=== PATIENT | male | born 1955 | race Caucasian/White ===

== ENCOUNTER 2016-08-14 10:15 | Emergency (ER) | payer SELFPAY ==
[~2016-08-14] VITALS: Ht 188 cm; Wt 90.7 kg
[2016-08-14 10:30] VITALS: BP 174/101
[2016-08-14 10:41] LABS: BASOPHILS # (AUTO) 0.1 10^3/uL (0.0-0.1); BASOPHILS % (AUTO) 1 % (0-10); EOSINOPHILS # (AUTO) 0.2 10^3/uL (0.0-0.3); EOSINOPHILS % (AUTO) 2 % (0-10); LYMPHOCYTES # (AUTO) 2.8 X 10^3 (1.0-4.0); LYMPHOCYTES % (AUTO) 19 % (12-44); MEAN CORPUSCULAR HEMOGLOBIN 31 PG (25-34); MEAN CORPUSCULAR HGB CONC 34 G/DL (32-36); MEAN CORPUSCULAR VOLUME 91 FL (80-99); MONOCYTES # (AUTO) 1.3 X 10^3 (0.0-1.0); MONOCYTES % (AUTO) 9 % (0-12); NEUTROPHILS # (AUTO) 10.4 X 10^3 (1.8-7.8); NEUTROPHILS % (AUTO) 70 % (42-75); PLATELET COUNT 284 10^3/uL (130-400); RED BLOOD COUNT 4.77 10^6/uL (4.35-5.85); RED CELL DISTRIBUTION WIDTH 13.7 % (10.0-14.5); WHITE BLOOD COUNT 14.8 10^3/uL (4.3-11.0)
--- NOTE | 2016-08-14 10:44 | ED Neurological Problem ---
General Chief Complaint: Neuro-Stroke Like Symptoms Stated Complaint: BLURRED VISION,LEG WEAKNESS Source: patient Exam Limitations: no limitations History of Present Illness Time seen by provider: 10:28 Initial Comments Here with report of blurred vision and increasing weakness over the last 36 hours. 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 This was done 2 weeks ago. He did not seek treatment between Sunday night with onset of symptoms until now due to he did not have a ride and couldn't get help. States that he feels like his legs are not working right and this is bilateral. Denies nausea, vomiting or dysuria. Denies breathing problems. Does report decreased hearing bilateral that also started 36 hours ago. Timing/Duration: 24 hours Severity: moderate Associated Symptoms: No fever/chills, No loss of consciousness, No nausea/ vomiting, No numbness in legs/feet, No slurred speech, No tingling in legs/feet , trouble walking, vision changes, weakness Allergies and Home Medications Allergies Coded Allergies: No Allergy Information Available (Unverified , 08/14/16) Constitutional: see HPI, No chills, No fever Eyes: Decreased Acuity Ears, Nose, Mouth, Throat: see HPI Respiratory: no symptoms reported Cardiovascular: no symptoms reported Gastrointestinal: see HPI, No abdominal pain, No nausea, No vomiting Genitourinary: no symptoms reported Musculoskeletal: see HPI, muscle weakness Skin: no symptoms reported All Other Systems Reviewed Negative Unless Noted: Yes Past Eqttqqs-Dfmtkk-Dlvrvf Hx Patient Social History Alcohol Use: Denies Use Recreational Drug Use: No Smoking Status: Former Smoker Recent Foreign Travel: No Contact w/Someone Who Travel: No Surgeries HX Surgeries: Yes Surgeries: Vascular Surgery Respiratory Hx Respiratory Disorders: No Cardiovascular Hx Cardiac Disorders: No Neurological Hx Neurological Disorders: Yes Neurological Disorders: Stroke Genitourinary Hx Genitourinary Disorders: No Gastrointestinal Hx Gastrointestinal Disorders: No Musculoskeletal Hx Musculoskeletal Disorders: No Endocrine Hx Endocrine Disorders: No Cancer Hx Cancer: No Reviewed Nursing Assessment Reviewed/Agree w Nursing PMH: Yes Family Medical History Significant Family History: Heart Disease, Vascular Disease Physical Exam Vital Signs Vital Sign - Last 12Hours 08/14/16 10:30 Temp 98.1 Pulse 75 Resp 21 B/P (MAP) 174/101 Pulse Ox 98 O2 Delivery Room Air Capillary Refill : General Appearance: WD/WN, no apparent distress HEENT: PERRL/EOMI, pharynx normal Neck: full range of motion, supple Respiratory: lungs clear, normal breath sounds Cardiovascular: regular rate, rhythm, no murmur Gastrointestinal: non tender, soft Back: normal inspection, no CVA tenderness, no vertebral tenderness Extremities: non-tender, normal inspection Neurologic/Psychiatric: alert, oriented x 3 Crainal Nerves: normal hearing, normal speech, PERRL Coordination/Gait: normal finger to nose Motor/Sensory: no sensory deficit, no pronator drift, weak motor strength RLE, weak motor strength LLE Skin: normal color, warm/dry (family) Progress/Results/Core Measures Results/Orders Lab Results Laboratory Tests Test 08/14/16 10:32 08/14/16 10:40 08/14/16 12:42 Range/Units White Blood Count 14.8 H 4.3-11.0 10^3/uL Red Blood Count 4.77 4.35-5.85 10^6/uL Hemoglobin 14.6 13.3-17.7 G/DL Hematocrit 43 40-54 % Mean Corpuscular Volume 91 80-99 FL Mean Corpuscular Hemoglobin 31 25-34 PG Mean Corpuscular Hemoglobin Concent 34 32-36 G/DL Red Cell Distribution Width 13.7 10.0-14.5 % Platelet Count 284 130-400 10^3/uL Mean Platelet Volume 10.0 7.4-10.4 FL Neutrophils (%) (Auto) 70 42-75 % Lymphocytes (%) (Auto) 19 12-44 % Monocytes (%) (Auto) 9 0-12 % Eosinophils (%) (Auto) 2 0-10 % Basophils (%) (Auto) 1 0-10 % Neutrophils # (Auto) 10.4 H 1.8-7.8 X 10^3 Lymphocytes # (Auto) 2.8 1.0-4.0 X 10^3 Monocytes # (Auto) 1.3 H 0.0-1.0 X 10^3 Eosinophils # (Auto) 0.2 0.0-0.3 10^3/uL Basophils # (Auto) 0.1 0.0-0.1 10^3/uL Neutrophils % (Manual) 61 % Lymphocytes % (Manual) 14 % Monocytes % (Manual) 10 % Eosinophils % (Manual) 1 % Basophils % (Manual) 1 % Reactive Lymphocytes 13 % Blood Morphology Comment NORMAL Prothrombin Time 13.2 12.2-14.7 SEC INR Comment 1.0 0.8-1.4 Activated Partial Thromboplast Time 30 24-35 SEC D-Dimer 0.68 H 0.00-0.49 UG/ML Sodium Level 136 135-145 MMOL/L Potassium Level 4.5 3.6-5.0 MMOL/L Chloride Level 108 H 98-107 MMOL/L Carbon Dioxide Level 22 21-32 MMOL/L Anion Gap 6 5-14 MMOL/L Blood Urea Nitrogen 27 H 7-18 MG/DL Creatinine 1.18 0.60-1.30 MG/DL Estimat Glomerular Filtration Rate > 60 BUN/Creatinine Ratio 23 Glucose Level 95 70-105 MG/DL Calcium Level 9.5 8.5-10.1 MG/DL Total Bilirubin 0.4 0.1-1.0 MG/DL Aspartate Amino Transf (AST/SGOT) 14 5-34 U/L Alanine Aminotransferase (ALT/SGPT) 44 0-55 U/L Alkaline Phosphatase 37 L 40-136 U/L Troponin I < 0.30 <0.30 NG/ML Total Protein 6.9 6.4-8.2 G/DL Albumin 4.1 3.2-4.5 G/DL Glucometer 109 70-110 MG/DL Urine Color YELLOW Urine Clarity CLEAR Urine pH 7 5-9 Urine Specific [place] 1.010 L 1.016-1.022 Urine Protein 1+ H NEGATIVE Urine Glucose (UA) NEGATIVE NEGATIVE Urine Ketones NEGATIVE NEGATIVE Urine Nitrite NEGATIVE NEGATIVE Urine Bilirubin NEGATIVE NEGATIVE Urine Urobilinogen NORMAL NORMAL MG/DL Urine Leukocyte Esterase NEGATIVE NEGATIVE Urine RBC (Auto) NEGATIVE NEGATIVE Urine RBC NONE /HPF Urine WBC NONE /HPF Urine Squamous Epithelial Cells NONE /HPF Urine Crystals NONE /LPF Urine Bacteria NEGATIVE /HPF Urine Casts NONE /LPF Urine Mucus NEGATIVE /LPF Urine Culture Indicated NO My Orders Orders - LEANNE CHAN MD Cbc With Automated Diff (08/14/16 10:31) Protime With Inr (08/14/16 10:31) Partial Thromboplastin Time (08/14/16 10:31) Comprehensive Metabolic Panel (08/14/16 10:31) Fibrin Degradation Products (08/14/16 10:31) Troponin I (08/14/16 10:31) Ua Culture If Indicated (08/14/16 10:31) Chest 1 View, Ap/Pa Only (08/14/16 10:31) Ekg Tracing (08/14/16 10:31) Nothing By Mouth (08/14/16 Dinner) Accucheck Stat ONCE (08/14/16 10:31) Saline Lock/Iv-Start (08/14/16 10:31) Saline Lock/Iv-Start (08/14/16 10:31) Vital Signs-Stroke Q1H (08/14/16 10:31) Ct Head Wo-R/O Stroke (08/14/16 10:31) O2 (08/14/16 10:31) Intake & Output 06,14,22 (08/14/16 10:31) Monitor-Rhythm Ecg Trace Only (08/14/16 10:31) Dysphagia Screening Tool (08/14/16 10:31) Manual Differential (08/14/16 10:32) Ct Angio Head W Wo (08/14/16 11:02) Iohexol Injection (Omnipaque 350 Mg/Ml 1 (08/14/16 11:30) Sodium Chloride Flush (Catheter Flush Sy (08/14/16 11:30) Ns (Ivpb) (Sodium Chloride 0.9% Ivpb Bag (08/14/16 11:30) Metoprolol Tartrate Injection (Lopressor (08/14/16 12:45) Metoprolol Succinate (Xl) Tab (Toprol Xl (08/14/16 12:45) General/Regular (08/14/16 Dinner) General/Regular (08/14/16 Lunch) Medications Given in ED Current Medications Medications Dose Ordered Sig/Get Route Start Time Stop Time Status Last Admin Dose Admin Iohexol 80 ml ONCE ONCE IV 08/14/16 11:30 08/14/16 11:31 DC 08/14/16 11:26 80 ML Metoprolol Tartrate 5 mg ONCE ONCE IV 08/14/16 12:45 08/14/16 12:46 DC 08/14/16 12:47 5 MG Sodium Chloride 10 ml NEEDED PRN IV 08/14/16 11:30 08/14/16 11:27 10 ML Sodium Chloride 100 ml ONCE ONCE IV 08/14/16 11:30 08/14/16 11:31 DC 08/14/16 11:27 80 ML Vital Signs/I&O Vital Sign - Last 12Hours 08/14/16 10:30 Temp 98.1 Pulse 75 Resp 21 B/P (MAP) 174/101 Pulse Ox 98 O2 Delivery Room Air Point of Care Testing Finger Stick Blood Glucose: 109 Blood Glucose Action Taken: RN AND DR NOTIFIED Progress Note : Progress Note Seen and evaluated. IV, labs, EKG, chest x-ray and CT head ordered. I did discuss the CT findings with the radiologist. We will get CT and GI with and without contrast to evaluate further. Patient had recent coiling of aneurysm. He does not qualify for TPA due to timeframe, recent stroke and recent aneurysm. Patient will get CT angiogram of the head do to history of aneurysm and findings as listed below. 1233: Consider inpatient rehabilitation patient is doing much better and states that he feels like he can go home he just wanted blood pressure medicine. States that he has had problems with his blood pressure and he was not discharged on blood pressure medicine from the other facility. It does look like there is recommendation for beta reji but I am unable to determine if he had prescription given are not based on transmitted records. Metoprolol 5 mg IV and 50 mg by mouth given. Monitor patient. 1415: Patient doing much better. His systolic blood pressures have been in the 150s and 160s. Heart rate greater than 60. Patient denies any complaints currently. Patient's would like to go home. We will give prescription medicine for blood pressure management. Discharged home with return precautions. Patient verbalize understanding instructions and agreement with plan. ECG Initial ECG Impression Date: August 14, 2016 Initial ECG Impression Time: 10:31 Initial ECG Rate: 77 Initial ECG Rhythm: Normal Sinus Comment Sinus rhythm with normal axis. No evidence of ST elevation GA. No previous available for comparison. Interpreted by me. Diagnostic Imaging Diagonstic Imaging: CT Plain Films/CT/US/NM/MRI: head Comments [facility] [place] NAME: [facility] REC#: [id number] PT STATUS: REG ER : 1955 PHYSICIAN: LEANNE CHAN MD ADMIT DATE: 08/14/16/ER Draft Date of Exam:08/14/16 CT HEAD WO-R/O STROKE CT head without contrast. INDICATION: Stroke. Leg weakness, blurred vision. FINDINGS: There is streak artifact related to dense coils or glue seen in the region of a suprasellar cyst in area along the right-side aspect of the [place] region suggestive of prior aneurysm embolization. This does limit evaluation of the immediate adjacent structures. There is otherwise no definite intracranial hemorrhage. Hyperdensity seen along the medial right frontal region appears to be artifactual. Periventricular and deep white matter mild hypodensities are suggestive of chronic microvascular ischemic changes. No hydrocephalus. No extra-axial fluid collection seen. The paranasal sinuses, orbits, and calvarium appear grossly unremarkable. IMPRESSION: Artifacts as described. No definite acute process. If symptoms persist, then consider repeat imaging or MRI evaluation. Dictated on workstation # [id number] Dict: 08/14/16 1042 Trans: 08/14/16 1051 JOS [id number] Interpreted by: MILTON ARIAS MD Electronically signed by: Reviewed: Discussed w/Radiologist Diagonstic Imaging: Xray Plain Films/CT/US/NM/MRI: chest Comments [facility]IA [facility] [place] NAME: [facility] REC#: [id number] PT STATUS: REG ER : 1955 PHYSICIAN: LEANNE CHAN MD ADMIT DATE: 08/14/16/ER Draft Date of Exam:08/14/16 CHEST 1 VIEW, AP/PA ONLY Portable upright radiograph of the chest. INDICATION: Blurred vision, weakness. FINDINGS: The lungs demonstrate bibasilar infiltrate or atelectasis. The heart size is mildly enlarged. No significant effusion. No pneumothorax. The mediastinum and jacques appear unremarkable. IMPRESSION: Bibasilar opacities may relate to atelectasis or infiltrates. Dictated on workstation # [id number] Dict: 08/14/16 1100 Trans: 08/14/16 1107 JOS [id number] Interpreted by: MILTON ARIAS MD Electronically signed by: Diagonstic Imaging: CT Plain Films/CT/US/NM/MRI: head Comments NAME: [facility] REC#: [id number] PT STATUS: REG ER : 1955 PHYSICIAN: LEANNE CHAN MD ADMIT DATE: 08/14/16/ER Draft Date of Exam:08/14/16 CT ANGIO HEAD W WO PROCEDURE: CT angiography of the head with and without contrast. TECHNIQUE: Noncontrast CT of the head was obtained. Subsequently, after intravenous administration of contrast, thin section axial CT angiography of the head was performed. Source data was reformatted into multiple MIP reformats. Delayed postcontrast acquisition of the head was also acquired. INDICATION: Severe headache. The patient has had [place] aneurysm treatment. COMPARISON: 08/14/2016. 85 mL of Omnipaque 350 is administered intravenously. FINDINGS: The unenhanced phase demonstrates significant streak artifacts in the right suprasellar region secondary to coils and/or glue presumably for treatment of a right SUNDEEP aneurysm. There is no intracranial hemorrhage. Delayed phase postcontrast images demonstrate no enhancing mass. CTA images demonstrate patency of the A1 segment from the right anterior cerebral artery proximal to the site of the aneurysm. The artery immediately adjacent to the coils is completely obscured. The distal aspect of the A1 segment and the anterior communicating artery region is also completely obscured. More distally the A2 and A3 segments of the right and left anterior cerebral arteries are normally opacified. No obvious contrast filling of the area of the aneurysm is seen although the assessment is poor with the significant artifacts. There is patency of the internal carotid arteries and the MCA bilaterally. The intracranial portions of the vertebral arteries and the basilar artery are patent. The visualized dural venous sinuses appear patent. IMPRESSION: 1. No intracranial hemorrhage. The hyperdensity seen in the frontal region on unenhanced CT scan performed earlier today is artifactual. 2. There is evidence of aneurysm embolization in the right suprasellar region near the A1 segment of the right [place]EP with significant beam-hardening artifacts from the coils and/or glue in the treated aneurysm limiting evaluation of the surrounding area. The evaluated vessels otherwise demonstrate no evidence of occlusion, high-grade stenosis, or other aneurysm. Dictated on workstation # [id number] Dict: 08/14/16 1146 Trans: 08/14/16 1221 [id number] Interpreted by: MILTON ARIAS MD Electronically signed by: Departure Impression Impression: Primary Impression: Uncontrolled hypertension Disposition: 01 HOME, SELF-CARE Condition: Improved Departure-Patient Inst. Decision time for Depature: 14:21 Referrals: NO,LOCAL PHYSICIAN (PCP/Family) Primary Care Physician Patient Instructions: High Blood Pressure (DC) Add. Discharge Instructions: All discharge instructions reviewed with patient and/or family. Voiced understanding. Take medications as directed. Follow-up with your doctor this week for recheck and further evaluation. Return for worse pain, fever, vomiting, weakness, breathing problems, vision or balance films or other concerns as needed. You do have the aneurysm that was coiled. This is usually successful treatment. You will need to follow-up with your neurologist and you will need to have a doctor and your local area as soon as possible. Scripts Metoprolol Tartrate (Metoprolol Tartrate) 50 Mg Tablet 50 MG PO BID, #60 TAB Prov: LEANNE CHAN MD 08/14/16 LEANNE CHAN MD August 14, 2016 10:44
--- NOTE | 2016-08-14 10:51 | Diagnostic Imaging Report ---
CT head without contrast. INDICATION: Stroke. Leg weakness, blurred vision. FINDINGS: There is streak artifact related to dense coils or glue seen in the region of a suprasellar cyst in area along the right-side aspect of the [place] region suggestive of prior aneurysm embolization. This does limit evaluation of the immediate adjacent structures. There is otherwise no definite intracranial hemorrhage. Hyperdensity seen along the medial right frontal region appears to be artifactual. Periventricular and deep white matter mild hypodensities are suggestive of chronic microvascular ischemic changes. No hydrocephalus. No extra-axial fluid collection seen. The paranasal sinuses, orbits, and calvarium appear grossly unremarkable. IMPRESSION: Artifacts as described. No definite acute process. If symptoms persist, then consider repeat imaging or MRI evaluation. Dictated by: Dictated on workstation # [id number]
[2016-08-14 11:00] LABS: PROTHROMBIN TIME PATIENT 13.2 SEC (12.2-14.7)
--- NOTE | 2016-08-14 11:08 | Diagnostic Imaging Report ---
Portable upright radiograph of the chest. INDICATION: Blurred vision, weakness. FINDINGS: The lungs demonstrate bibasilar infiltrate or atelectasis. The heart size is mildly enlarged. No significant effusion. No pneumothorax. The mediastinum and jacques appear unremarkable. IMPRESSION: Bibasilar opacities may relate to atelectasis or infiltrates. Dictated by: Dictated on workstation # [id number]
[2016-08-14 11:16] LABS: ALANINE AMINOTRANSFERASE 44 U/L (0-55); ALBUMIN 4.1 G/DL (3.2-4.5); ANION GAP 6 MMOL/L (5-14); ASPARTATE AMINO TRANSFERASE 14 U/L (5-34); BILIRUBIN,TOTAL 0.4 MG/DL (0.1-1.0); BLOOD UREA NITROGEN 27 MG/DL (7-18); BUN/CREATININE RATIO 23; CALCIUM 9.5 MG/DL (8.5-10.1); CARBON DIOXIDE 22 MMOL/L (21-32); CHLORIDE 108 MMOL/L (98-107); CREATININE SERUM 1.18 MG/DL (0.60-1.30); GFR ESTIMATED > 60; GLUCOSE 95 MG/DL (70-105); POTASSIUM 4.5 MMOL/L (3.6-5.0); SODIUM 136 MMOL/L (135-145); TOTAL PROTEIN 6.9 G/DL (6.4-8.2)
[2016-08-14 11:21] LABS: TROPONIN I < 0.30 NG/ML (<0.30)
[2016-08-14] MEDS ORDERED: NS 100 ML (IVPB) BAG IV ONE (11:30)
[2016-08-14] MEDS ORDERED: CATHETER FLUSH 10 ML SYR IV PRN (11:30)
[2016-08-14] MEDS ORDERED: IOHEXOL 350 MG/ML 100 ML (OMNIPAQUE 350) VIAL IV ONE (11:30)
[2016-08-14 11:48] LABS: BASOPHILS % (MANUAL) 1 %; EOSINOPHILS % (MANUAL) 1 %; LYMPHOCYTES % (MANUAL) 14 %; NEUTROPHILS % (MANUAL) 61 %; REACTIVE LYMPHOCYTES 13 %
--- NOTE | 2016-08-14 12:21 | Diagnostic Imaging Report ---
PROCEDURE: CT angiography of the head with and without contrast. TECHNIQUE: Noncontrast CT of the head was obtained. Subsequently, after intravenous administration of contrast, thin section axial CT angiography of the head was performed. Source data was reformatted into multiple MIP reformats. Delayed postcontrast acquisition of the head was also acquired. INDICATION: Severe headache. The patient has had [place] aneurysm treatment. COMPARISON: 08/14/2016. 85 mL of Omnipaque 350 is administered intravenously. FINDINGS: The unenhanced phase demonstrates significant streak artifacts in the right suprasellar region secondary to coils and/or glue presumably for treatment of a right SUNDEEP aneurysm. There is no intracranial hemorrhage. Delayed phase postcontrast images demonstrate no enhancing mass. CTA images demonstrate patency of the A1 segment from the right anterior cerebral artery proximal to the site of the aneurysm. The artery immediately adjacent to the coils is completely obscured. The distal aspect of the A1 segment and the anterior communicating artery region is also completely obscured. More distally the A2 and A3 segments of the right and left anterior cerebral arteries are normally opacified. No obvious contrast filling of the area of the aneurysm is seen although the assessment is poor with the significant artifacts. There is patency of the internal carotid arteries and the MCA bilaterally. The intracranial portions of the vertebral arteries and the basilar artery are patent. The visualized dural venous sinuses appear patent. IMPRESSION: 1. No intracranial hemorrhage. The hyperdensity seen in the frontal region on unenhanced CT scan performed earlier today is artifactual. 2. There is evidence of aneurysm embolization in the right suprasellar region near the A1 segment of the right [place]DEEP with significant beam-hardening artifacts from the coils and/or glue in the treated aneurysm limiting evaluation of the surrounding area. The evaluated vessels otherwise demonstrate no evidence of occlusion, high-grade stenosis, or other aneurysm. Dictated by: Dictated on workstation # [id number]
[2016-08-14] MEDS ORDERED: meTOproloL SUCCINATE 50 MG (TOPROL XL) TAB PO SCH (12:45)
[2016-08-14] MEDS ORDERED: meTOprolol 5 MG/5 ML (LOPRESSOR) VIAL IV ONE (12:45)
[2016-08-14 12:50] LABS: BILIRUBIN,URINE NEGATIVE (NEGATIVE); KETONES,URINE NEGATIVE (NEGATIVE); LEUKOCYTE ESTERASE ,URINE NEGATIVE (NEGATIVE); NITRITE,URINE NEGATIVE (NEGATIVE); PH,URINE 7 (5-9); PROTEIN,URINE 1+ (NEGATIVE); UROBILINOGEN,URINE NORMAL (NORMAL)
[2016-08-14] MEDS ORDERED: METO50TA2 PO (14:23)
== END 2016-08-14 14:26 | disposition home or self-care (01) ==
LOC: ER 10:19
DX: I10 Essential (primary) hypertension (principal); H53.8 Other visual disturbances; R53.1 Weakness; Z79.899 Other long term (current) drug therapy; Z98.890 Other specified postprocedural states; Z95.828 Presence of other vascular implants and grafts
CPT/HCPCS: 36415; 70450; 70496; 71010; 80053; 81000; 82962; 84484; 85007; 85027; 85379; 85610; 85730; 93005; 93041; 96374

== ENCOUNTER 2022-07-28 14:57 | Emergency (ER) | payer MEDICAID ==
[~2022-07-28] VITALS: Ht 187.9 cm; Wt 86.2 kg
[~2022-07-28 14:57] MED LIST: METO50TA15 PO
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
[2022-07-28 16:03] LABS: BASOPHILS # (AUTO) 0.1 10^3/uL (0.0-0.1); BASOPHILS % (AUTO) 1 % (0-10); EOSINOPHILS # (AUTO) 0.1 10^3/uL (0.0-0.3); EOSINOPHILS % (AUTO) 1 % (0-10); HEMATOCRIT 43 % (40-54); HEMOGLOBIN 15.3 g/dL (13.3-17.7); LYMPHOCYTES # (AUTO) 2.5 10^3/uL (1.0-4.0); LYMPHOCYTES % (AUTO) 21 % (12-44); MEAN CORPUSCULAR HEMOGLOBIN 32 pg (25-34); MEAN CORPUSCULAR HGB CONC 36 g/dL (32-36); MEAN CORPUSCULAR VOLUME 89 fL (80-99); MEAN PLATELET VOLUME 10.9 fL (9.0-12.2); MONOCYTES % (AUTO) 8 % (0-12); NEUTROPHILS # (AUTO) 8.5 10^3/uL (1.8-7.8); NEUTROPHILS % (AUTO) 70 % (42-75); PLATELET COUNT 238 10^3/uL (130-400); WHITE BLOOD COUNT 12.2 10^3/uL (4.3-11.0)
[2022-07-28 16:11] LABS: ALBUMIN 4.4 GM/DL (3.2-4.5); CHLORIDE 108 MMOL/L (98-107); POTASSIUM 3.6 MMOL/L (3.6-5.0); SODIUM 142 MMOL/L (135-145)
[2022-07-28 16:12] LABS: CALCIUM 10.4 MG/DL (8.5-10.1)
[2022-07-28 16:14] LABS: GLUCOSE 104 MG/DL (70-105); TOTAL PROTEIN 7.4 GM/DL (6.4-8.2)
[2022-07-28 16:15] LABS: BILIRUBIN,TOTAL 0.6 MG/DL (0.1-1.0); CARBON DIOXIDE 21 MMOL/L (21-32)
[2022-07-28 16:17] LABS: ALKALINE PHOSPHATASE 40 U/L (40-136); CREATININE SERUM 1.09 MG/DL (0.60-1.30); GFR ESTIMATED 73
[2022-07-28 16:18] LABS: BILIRUBIN,URINE NEGATIVE (NEGATIVE); CLARITY,URINE CLEAR; COLOR,URINE YELLOW; GLUCOSE, URINE (UA) NEGATIVE (NEGATIVE); KETONES,URINE NEGATIVE (NEGATIVE); LEUKOCYTE ESTERASE ,URINE NEGATIVE (NEGATIVE); NITRITE,URINE NEGATIVE (NEGATIVE); PROTEIN,URINE TRACE (NEGATIVE)
[2022-07-28 16:19] LABS: BUN/CREATININE RATIO 24
[2022-07-28 16:20] LABS: ALANINE AMINOTRANSFERASE 25 U/L (0-55); SALICYLATE < 5.0 MG/DL (5.0-20.0)
[2022-07-28 16:26] LABS: BACTERIA,URINE FEW /HPF; HYALINE CASTS, URINE 0-2 /LPF
[2022-07-28 16:29] LABS: ACETAMINOPHEN < 10 UG/ML (10-30)
[2022-07-28 16:40] LABS: AMPHETAMINE SCREEN, URINE NEGATIVE (NEGATIVE); BARBITURATE SCREEN URINE NEGATIVE (NEGATIVE); BENZODIAZEPINES SCREEN URINE POSITIVE (NEGATIVE); CANNABINOID SCREEN, URINE NEGATIVE (NEGATIVE); COCAINE SCREEN URINE NEGATIVE (NEGATIVE); METHADONE STAT NEGATIVE (NEGATIVE); OPIATE SCREEN URINE NEGATIVE (NEGATIVE); OXYCODONE STAT NEGATIVE (NEGATIVE); PROPOXYPHENE STAT NEGATIVE (NEGATIVE); TRICYCLIC ANTIDEPRESSANTS SCRE NEGATIVE (NEGATIVE)
[2022-07-29] MEDS ORDERED: OLANZapine 5 MG ODT (ZyPREXA ZYDIS) SL ONE (13:00)
[2022-07-29] MEDS ORDERED: LORazepam 0.5 MG (ATIVAN) TABLET PO STA (13:55)
[2022-07-30] MEDS ORDERED: LORazepam 0.5 MG (ATIVAN) TABLET PO ONE (05:00)
[2022-07-30] MEDS ORDERED: OLANZapine 5 MG ODT (ZyPREXA ZYDIS) PO ONE (05:00)
[2022-07-30 06:03] VITALS: BP 128/97
== END 2022-07-30 06:03 | disposition short-term general hospital (02) ==
LOC: EDUNIT# 14:57 → ER 15:01
DX: F22 Delusional disorders (principal); R45.851 Suicidal ideations; F17.210 Nicotine dependence, cigarettes, uncomplicated; Z20.822 Contact with and (suspected) exposure to COVID-19
CPT/HCPCS: 80053; 80306; 81000; 85025; 87088; 87636; 99283; G0480 ×3; 36415; 80320; 80329; 93005

== ENCOUNTER 2022-11-21 06:16 | Emergency (ER) | payer MEDICAID ==
[~2022-11-21] VITALS: Ht 185.5 cm; Wt 99.7 kg
[2022-11-21] MEDS ORDERED: NS IV 1000 ML 1,000 ML IV STA (06:28)
[2022-11-21 06:40] LABS: BASOPHILS # (AUTO) 0.1 10^3/uL (0.0-0.1); BASOPHILS % (AUTO) 1 % (0-10); EOSINOPHILS # (AUTO) 0.3 10^3/uL (0.0-0.3); EOSINOPHILS % (AUTO) 4 % (0-10); HEMATOCRIT 42 % (40-54); HEMOGLOBIN 14.6 g/dL (13.3-17.7); LYMPHOCYTES # (AUTO) 2.7 10^3/uL (1.0-4.0); LYMPHOCYTES % (AUTO) 40 % (12-44); MEAN CORPUSCULAR HEMOGLOBIN 31 pg (25-34); MEAN CORPUSCULAR HGB CONC 35 g/dL (32-36); MEAN CORPUSCULAR VOLUME 90 fL (80-99); MEAN PLATELET VOLUME 10.4 fL (9.0-12.2); MONOCYTES # (AUTO) 0.5 10^3/uL (0.0-1.0); MONOCYTES % (AUTO) 7 % (0-12); NEUTROPHILS # (AUTO) 3.2 10^3/uL (1.8-7.8); NEUTROPHILS % (AUTO) 47 % (42-75); PLATELET COUNT 188 10^3/uL (130-400); WHITE BLOOD COUNT 6.7 10^3/uL (4.3-11.0)
--- NOTE | 2022-11-21 06:40 | ED Cough/URI ---
General Chief Complaint: Respiratory Problems Stated Complaint: SOB Nursing Triage Note: PATIENT BROUGHT BY EMS WITH COMPLAINT OF THROAT CLOSING AND SHORTNESS OF BREATH. Source: patient, EMS Exam Limitations: no limitations History of Present Illness Date Seen by Provider: Nov 21, 2022 Time Seen by Provider: 06:16 Initial Comments Here by EMS from snf. Patient apparently called dispatch himself due to difficulty breathing. Patient has known schizophrenia and has been in the facility for a few months but is still not well-known. He reports difficulty b reathing through his nose and feels like he needs oxygen. EMS was summoned and reports normal vital signs in the field with normal oxygenation on room air and normal blood pressure. Patient states that he does not currently smoke. Reports sore throat and shortness of breath. He does not seem to be in any distress. Patient is a very poor historian. He is following commands dread ropriately and answers simple questions. Denies nausea or vomiting. Denies pain. That the snf had him outside too much yesterday but is unable to explain details. Timing/Duration: yesterday Severity/Quality: no cough Associated Symptoms: cough, fever/chills, nasal congestion, nasal drainage, shortness of breath, sore throat Allergies and Home Medications Allergies Coded Allergies: No Known Drug Allergies (Unverified , 11/21/22) Patient Home Medication List Home Medication List Reviewed: Yes Metoprolol Tartrate (Metoprolol Tartrate) 50 Mg Tablet, 50 MG PO BID Prescribed by: LEANNE CHAN on 08/14/16 1423 Review of Systems Review of Systems Constitutional: see HPI; No chills, No fever EENTM: see HPI Respiratory: No cough; short of breath Cardiovascular: No chest pain, No edema Gastrointestinal: No nausea, No vomiting Genitourinary: no symptoms reported Musculoskeletal: no symptoms reported Skin: no symptoms reported Past Kgjsbum-Obekrk-Dlrvrz Hx Patient Social History Tobacco Use?: No Seasonal Allergies Seasonal Allergies: No Past Medical History Surgeries: Yes (COIL IN BRAIN FOR RUPTURED ANEURYSM) Vascular Surgery Respiratory: No Cardiac: Yes Aneurysm, Hypertension Neurological: No Stroke Genitourinary: No Gastrointestinal: No Musculoskeletal: No Endocrine: No HEENT: No Cancer: No Psychosocial: Yes Schizophrenia Integumentary: No Family Medical History Reviewed Nursing Family Hx Heart Disease, Vascular Disease Physical Exam Vital Signs - First Documented 11/21/22 06:22 Temp 36.2 Pulse 85 Resp 20 B/P (MAP) 119/85 (96) Pulse Ox 91 O2 Delivery Room Air Capillary Refill : Less Than 3 Seconds Height: 6'2.00" Weight: 200lbs. oz. 90.247765ym; 28.00 BMI Method:Stated General Appearance: no apparent distress, thin HEENT: PERRL/EOMI, TMs normal, pharyngeal erythema, other (Condition bilateral) Neck: non-tender, full range of motion, supple Respiratory: lungs clear, normal breath sounds Cardiovascular: regular rate, rhythm, no murmur Gastrointestinal: non tender, soft Extremities: non-tender, normal inspection Neurologic/Psychiatric: alert, oriented x 3 Skin: normal color, warm/dry Progress/Results/Core Measures Suspected Sepsis SIRS Temperature: Pulse: 85 Respiratory Rate: 20 Laboratory Tests 11/21/22 06:35: White Blood Count 6.7 Blood Pressure 119 /85 Mean: 96 Laboratory Tests 11/21/22 06:35: Creatinine 0.95, Platelet Count 188, Total Bilirubin 0.6 Results/Orders Lab Results Laboratory Tests Test 11/21/22 06:35 Range/Units White Blood Count 6.7 4.3-11.0 10^3/uL Red Blood Count 4.72 4.30-5.52 10^6/uL Hemoglobin 14.6 13.3-17.7 g/dL Hematocrit 42 40-54 % Mean Corpuscular Volume 90 80-99 fL Mean Corpuscular Hemoglobin 31 25-34 pg Mean Corpuscular Hemoglobin Concent 35 32-36 g/dL Red Cell Distribution Width 13.4 10.0-14.5 % Platelet Count 188 130-400 10^3/uL Mean Platelet Volume 10.4 9.0-12.2 fL Immature Granulocyte % (Auto) 0 % Neutrophils (%) (Auto) 47 42-75 % Lymphocytes (%) (Auto) 40 12-44 % Monocytes (%) (Auto) 7 0-12 % Eosinophils (%) (Auto) 4 0-10 % Basophils (%) (Auto) 1 0-10 % Neutrophils # (Auto) 3.2 1.8-7.8 10^3/uL Lymphocytes # (Auto) 2.7 1.0-4.0 10^3/uL Monocytes # (Auto) 0.5 0.0-1.0 10^3/uL Eosinophils # (Auto) 0.3 0.0-0.3 10^3/uL Basophils # (Auto) 0.1 0.0-0.1 10^3/uL Immature Granulocyte # (Auto) 0.0 0.0-0.1 10^3/uL Sodium Level 144 135-145 MMOL/L Potassium Level 3.6 3.6-5.0 MMOL/L Chloride Level 106 98-107 MMOL/L Carbon Dioxide Level 26 21-32 MMOL/L Anion Gap 12 5-14 MMOL/L Blood Urea Nitrogen 15 7-18 MG/DL Creatinine 0.95 0.60-1.30 MG/DL Estimat Glomerular Filtration Rate 87 BUN/Creatinine Ratio 16 Glucose Level 99 70-105 MG/DL Calcium Level 9.7 8.5-10.1 MG/DL Corrected Calcium 9.6 8.5-10.1 MG/DL Total Bilirubin 0.6 0.1-1.0 MG/DL Aspartate Amino Transf (AST/SGOT) 18 5-34 U/L Alanine Aminotransferase (ALT/SGPT) 25 0-55 U/L Alkaline Phosphatase 35 L 40-136 U/L C-Reactive Protein High Sensitivity 0.07 0.00-0.50 MG/DL Total Protein 6.5 6.4-8.2 GM/DL Albumin 4.1 3.2-4.5 GM/DL SARS-CoV-2 RNA (RT-PCR) Not Detected Not Detecte Group A Streptococcus Screen NEGATIVE NEGATIVE My Orders Orders - LEANNE CHAN MD Cbc With Automated Diff (11/21/22 06:28) Comprehensive Metabolic Panel (11/21/22 06:28) Hs C Reactive Protein (11/21/22 06:28) Rapid Strep A Screen (11/21/22 06:28) Chest 1 View, Ap/Pa Only (11/21/22 06:28) Ns Iv 1000 Ml (Sodium Chloride 0.9%) (11/21/22 06:28) Ed Iv/Invasive Line Start (11/21/22 06:28) Covid 19 Inhouse Test (11/21/22 06:28) Throat Culture Strep A Confirm (11/21/22 06:35) Vital Signs/I&O 11/21/22 06:22 Temp 36.2 Pulse 85 Resp 20 B/P (MAP) 119/85 (96) Pulse Ox 91 O2 Delivery Room Air Capillary Refill : Less Than 3 Seconds Blood Pressure Mean: 96 Progress Note : Progress Note Seen and evaluated. We will go ahead and check for COVID and strep. Given patient's underlying mental health disorder and difficulty with history, we will check some basic labs occluding CBC and CMP as well as CRP and get chest x-ray and give normal saline 1 L bolus. Monitor patient. Diagnosis includes COVID, viral infection, pneumonia, sinusitis 0858: Chest x-ray reviewed by me shows atelectasis right base on my in terpretation although this could be infiltrate. Radiology report agrees. CBC reviewed and is grossly normal. CMP and CRP are grossly normal. COVID is negative. We will go ahead and initiate outpatient antibiotic for possible sinusitis and then to cover the possible pneumonia. Discharged back to snf with return precautions. Report called to snf by staff. Diagnostic Imaging Diagonstic Imaging: Xray Plain Films/CT/US/NM/MRI: chest Comments [facility] [place], [place] NAME: NGUYEN PATEL [facility] REC#: [id number] PT STATUS: REG ER : 1955 PHYSICIAN: LEANNE CHAN MD ADMIT DATE: 11/21/22/ER Draft Date of Exam:11/21/22 CHEST 1 VIEW, AP/PA ONLY INDICATION: Throat closing, shortness of breath TECHNIQUE: Single view chest 7:13 AM CORRELATION STUDY: 08/14/2016 FINDINGS: Heart size enlarged. Vasculature within normal limits. Elevated right diaphragm with atelectasis or infiltrate present. Left lung clear. IMPRESSION: 1. Unchanged elevated right diaphragm with atelectasis and/or infiltrate developing the right lung base. Dictated on workstation # [id number] Dict: 11/21/2228 Trans: 11/21/2229 SOLEDAD [id number] Interpreted by: RUTH SOTO DO Electronically signed by: Departure Impression Primary Impression: Bronchitis Disposition: 01 HOME, SELF-CARE Condition: Stable Departure-Patient Inst. Decision time for Depature: 09:02 Referrals: NO,LOCAL PHYSICIAN (PCP/Family) Primary Care Physician Patient Instructions: Acute bronchitis Add. Discharge Instructions: All discharge instructions reviewed with patient and/or family. Voiced understanding. Take medications as directed. Continue home medications as previously prescribed. Follow-up with your doctor later this week for recheck and further evaluation. Return for worse pain, fever, vomiting, weakness, breathing problems or other concerns as needed. Scripts Cefdinir (Cefdinir) 300 Mg Capsule 300 MG PO BID, #14 CAP 0 Refills Prov: LEANNE CHAN MD 11/21/22 Azithromycin (Azithromycin) 250 Mg Tablet 250 MG PO UD, #6 TAB TAKE 2 TABLETS ON DAY ONE THEN TAKE 1 TABLET DAILY FOR FOUR MORE DAYS Prov: LEANNE CHAN MD 11/21/22 LEANNE CHAN MD Nov 21, 2022 06:40
[2022-11-21 06:58] LABS: ALBUMIN 4.1 GM/DL (3.2-4.5); POTASSIUM 3.6 MMOL/L (3.6-5.0)
[2022-11-21 06:59] LABS: CALCIUM 9.7 MG/DL (8.5-10.1)
[2022-11-21 07:00] LABS: TOTAL PROTEIN 6.5 GM/DL (6.4-8.2)
[2022-11-21 07:02] LABS: BILIRUBIN,TOTAL 0.6 MG/DL (0.1-1.0)
[2022-11-21 07:04] LABS: CREATININE SERUM 0.95 MG/DL (0.60-1.30)
--- NOTE | 2022-11-21 07:29 | Diagnostic Imaging Report ---
INDICATION: Throat closing, shortness of breath TECHNIQUE: Single view chest 7:13 AM CORRELATION STUDY: 08/14/2016 FINDINGS: Heart size enlarged. Vasculature within normal limits. Elevated right diaphragm with atelectasis or infiltrate present. Left lung clear. IMPRESSION: 1. Unchanged elevated right diaphragm with atelectasis and/or infiltrate developing the right lung base. Dictated by: Dictated on workstation # [id number]
[2022-11-21] MEDS ORDERED: CEFD300C3 PO (09:04)
[2022-11-21] MEDS ORDERED: AZIT250T12 PO (09:04)
[2022-11-21 09:30] VITALS: BP 131/90
== END 2022-11-21 09:52 | disposition home or self-care (01) ==
LOC: EDUNIT# 06:16 → ER 06:18
DX: J40 Bronchitis, not specified as acute or chronic (principal); Z20.822 Contact with and (suspected) exposure to COVID-19; Z28.310 Unvaccinated for COVID-19
CPT/HCPCS: 36415; 71045; 80053; 85025; 86141; 87430; 87636